=== PATIENT | male | born 1970 | race Caucasian/White ===

== ENCOUNTER 2016-07-26 14:43 | Emergency (ER) | payer SELFPAY ==
[~2016-07-26] VITALS: Ht 180.3 cm; Wt 80.0 kg
[2016-07-26] MEDS ORDERED: SODIUM CHLOR 0.9% 1000 ML INJ 1,000 ML IV ONE (14:52)
[2016-07-26] MEDS ORDERED: SODIUM CHLOR 0.9% 1000 ML INJ 1,000 ML IV SCH (14:52)
--- NOTE | 2016-07-26 14:55 | PD ---
HPI Chief Complaint: SUBSTANCE ABUSE Time Seen by Provider: 14:55 Travel History International Travel<30 days: No Contact w/Intl Traveler<30days: No History of Present Illness HPI 46-year-old male with a history of substance abuse presents to the emergency department for evaluation of shortness of breath and anxiety after using cocaine. The patient states that he used a lot of cocaine and immediately afterward began to feel shortness of breath. States that his heart was racing. States that the symptoms worsened over the next 5-10 minutes and he called EMS. Per EMS report when they arrived on scene the patient's heart rate was 191 bpm. They gave the patient 2 mg of Ativan IV which brought his heart rate down to 130 bpm. The patient states that his symptoms have greatly improved and he is no longer experiencing any shortness of breath. He denies any chest pain, lightheadedness, nausea, vomiting, abdominal pain, headache. States that he used only cocaine today. He does occasionally use IV Dilaudid, last used this 4 days ago. Denies any history of heart disease or OH. No other complaints. [facility] Past Medical History Medical History: Denies Significant Hx Cerebrovascular Accident: No Diabetes: No Myocardial Infarction: No Social History Alcohol Use: Yes (occasional) Tobacco Use: Yes Substance Use: Yes (cocaine, IV Dilaudid) Allergies-Medications (Allergen,Severity, Reaction): Coded Allergies: No Known Allergies (Unverified , 12/16/13) Reported Meds & Prescriptions Reported Meds & Active Scripts Active No Active Prescriptions or Reported Medications Review of Systems Except as stated in HPI: all other systems reviewed are Neg Physical Exam Narrative GENERAL: Well-nourished and well-developed male patient in no acute distress. SKIN: Warm and dry. HEAD: Normocephalic and atraumatic. EYES: No injection, drainage, or hyphema noted. PERRLA. EOMI. ENT: No nasal drainage noted. Oropharynx is clear. NECK: Supple and the trachea is midline. CARDIOVASCULAR: Regular rate and rhythm. RESPIRATORY: Breath sounds are equal bilaterally with no accessory muscle use, wheezing, rhonchi, or crackles. GASTROINTESTINAL: Abdomen is soft, non-tender, and nondistended. MUSCULOSKELETAL: No obvious deformities, swelling, cyanosis, or ecchymosis is present throughout the upper and lower extremities. Patient has full range of motion without any signs of neurovascular compromise. NEUROLOGICAL: Awake, alert, and oriented. Normal speech and gait. Cranial nerves are grossly intact. Data Data Last Documented VS Vital Signs Date Time Temp Pulse Resp B/P Pulse Ox O2 Delivery O2 Flow Rate FiO2 07/26/16 16:05 79 16 115/71 97 Room Air 07/26/16 15:11 98.5 Orders Electrocardiogram (07/26/16 14:52) Basic Metabolic Panel (Bmp) (07/26/16 14:52) Complete Blood Count With Diff (07/26/16 14:52) Iv Access Insert/Monitor (07/26/16 14:52) Ecg Monitoring (07/26/16 14:52) Oximetry (07/26/16 14:52) Sodium Chloride 0.9% Flush (Ns Flush) (07/26/16 15:00) Sodium Chlor 0.9% 1000 Ml Inj (Ns 1000 M (07/26/16 14:52) Sodium Chlor 0.9% 1000 Ml Inj (Ns 1000 M (07/26/16 14:52) Troponin I (07/26/16 14:55) Labs Laboratory Tests Test 07/26/16 15:00 White Blood Count 7.3 TH/MM3 Red Blood Count 4.72 MIL/MM3 Hemoglobin 13.7 GM/DL Hematocrit 41.5 % Mean Corpuscular Volume 87.9 FL Mean Corpuscular Hemoglobin 29.1 PG Mean Corpuscular Hemoglobin 33.0 % Concent Red Cell Distribution Width 13.8 % Platelet Count 107 TH/MM3 Mean Platelet Volume 9.0 FL Neutrophils (%) (Auto) 64.8 % Lymphocytes (%) (Auto) 23.8 % Monocytes (%) (Auto) 6.9 % Eosinophils (%) (Auto) 3.8 % Basophils (%) (Auto) 0.7 % Neutrophils # (Auto) 4.7 TH/MM3 Lymphocytes # (Auto) 1.7 TH/MM3 Monocytes # (Auto) 0.5 TH/MM3 Eosinophils # (Auto) 0.3 TH/MM3 Basophils # (Auto) 0.0 TH/MM3 CBC Comment DIFF FINAL Differential Comment Sodium Level 140 MEQ/L Potassium Level 3.7 MEQ/L Chloride Level 105 MEQ/L Carbon Dioxide Level 24.8 MEQ/L Anion Gap 10 MEQ/L Blood Urea Nitrogen 11 MG/DL Creatinine 1.10 MG/DL Estimat Glomerular Filtration 73 ML/MIN Rate Random Glucose 89 MG/DL Calcium Level 8.8 MG/DL Troponin I LESS THAN 0.02 NG/ML MDM Medical Decision Making Medical Screen Exam Complete: Yes Emergency Medical Condition: Yes Differential Diagnosis Substance abuse versus SVT versus OH Narrative Course 46-year-old male presents to the emergency department for evaluation of shortness of breath and heart palpitations after using cocaine. Patient is afebrile, vital signs are stable. Per EMS report when they arrived his heart rate was 191 bpm. Status post 2 mg of Ativan brought him to 130 beats per minutes. He is now a deformities for minute here in our emergency department. Symptoms have resolved. IV access is obtained, labs were drawn and sent. Patient is administered IV fluids. EKG shows normal sinus rhythm with no acute ST elevations or depressions. CBC is unremarkable. Troponin is less than 0.02. BMP is unremarkable. Patient has remained stable and without complaint while here in the emergency department. Heart rate has normalized and is around 72 bpm. Counselled cessation of illegal substances. Advised follow-up as an outpatient with PCP and a rehabilitation facility. I discussed the case with my attending physician Dr. Sharma who is aware of the patients history, physical examination findings, and treatment plan. Diagnosis Primary Impression: Cocaine abuse Referrals: Primary Care Physician [facility] Patient Instructions: Cocaine Abuse (ED), General Instructions Additional Instructions: Stop using illegal drugs. Follow-up with [facility] or another outpatient rehab facility. Return to the ED for any acute worsening of symptoms. Med/Other Pt SpecificInfo: No Change to Meds Scripts No Active Prescriptions or Reported Meds Disposition: 01 DISCHARGE HOME Condition: Stable Lacy Lazo Jul 26, 2016 14:55
[2016-07-26] MEDS ORDERED: SODIUM CHLORIDE 0.9% FLUSH 10 ML FLUSH IVF PRN (15:00)
[2016-07-26 15:11] VITALS: BP 115/71; PULSE 84; RESP 18; TEMP 98.5; O2SAT 95
[2016-07-26 15:14] VITALS: RESP 18; O2SAT 98
[2016-07-26 15:31] LABS: AUTOMATED NEUTROPHIL # 4.7 TH/MM3 (1.8-7.7); BASOPHIL % 0.7 % (0.0-2.0); EOSINOPHIL # 0.3 TH/MM3 (0-0.4); EOSINOPHIL % 3.8 % (0.0-4.0); HEMATOCRIT 41.5 % (39.0-51.0); HEMO FLAGS DIFF FINAL; LYMPH % 23.8 % (9.0-44.0); LYMPHOCYTE # 1.7 TH/MM3 (1.0-4.8); MEAN CELL VOLUME 87.9 FL (80.0-100.0); MEAN CORPUSCULAR HEMOGLOBIN 29.1 PG (27.0-34.0); MONO % 6.9 % (0.0-8.0); NEUT % 64.8 % (16.0-70.0); PLATELET COUNT 107 TH/MM3 (150-450); RED BLOOD COUNT 4.72 MIL/MM3 (4.50-5.90); RED CELL DISTRIBUTION WIDTH 13.8 % (11.6-17.2); WHITE BLOOD COUNT 7.3 TH/MM3 (4.0-11.0)
[2016-07-26 16:05] VITALS: BP 115/71; PULSE 79; RESP 16; O2SAT 97
[2016-07-26 16:07] LABS: BICARBONATE 24.8 MEQ/L (21.0-32.0)
[2016-07-26 16:09] LABS: POTASSIUM 3.7 MEQ/L (3.5-5.1)
--- NOTE | 2016-07-26 16:17 | PD ---
Data Data Last Documented VS Vital Signs Date Time Temp Pulse Resp B/P Pulse Ox O2 Delivery O2 Flow Rate FiO2 07/26/16 16:05 79 16 115/71 97 Room Air 07/26/16 15:11 98.5 Orders Electrocardiogram (07/26/16 14:52) Basic Metabolic Panel (Bmp) (07/26/16 14:52) Complete Blood Count With Diff (07/26/16 14:52) Iv Access Insert/Monitor (07/26/16 14:52) Ecg Monitoring (07/26/16 14:52) Oximetry (07/26/16 14:52) Sodium Chloride 0.9% Flush (Ns Flush) (07/26/16 15:00) Sodium Chlor 0.9% 1000 Ml Inj (Ns 1000 M (07/26/16 14:52) Sodium Chlor 0.9% 1000 Ml Inj (Ns 1000 M (07/26/16 14:52) Troponin I (07/26/16 14:55) Labs Laboratory Tests Test 07/26/16 15:00 White Blood Count 7.3 TH/MM3 Red Blood Count 4.72 MIL/MM3 Hemoglobin 13.7 GM/DL Hematocrit 41.5 % Mean Corpuscular Volume 87.9 FL Mean Corpuscular Hemoglobin 29.1 PG Mean Corpuscular Hemoglobin 33.0 % Concent Red Cell Distribution Width 13.8 % Platelet Count 107 TH/MM3 Mean Platelet Volume 9.0 FL Neutrophils (%) (Auto) 64.8 % Lymphocytes (%) (Auto) 23.8 % Monocytes (%) (Auto) 6.9 % Eosinophils (%) (Auto) 3.8 % Basophils (%) (Auto) 0.7 % Neutrophils # (Auto) 4.7 TH/MM3 Lymphocytes # (Auto) 1.7 TH/MM3 Monocytes # (Auto) 0.5 TH/MM3 Eosinophils # (Auto) 0.3 TH/MM3 Basophils # (Auto) 0.0 TH/MM3 CBC Comment DIFF FINAL Differential Comment Sodium Level 140 MEQ/L Potassium Level 3.7 MEQ/L Chloride Level 105 MEQ/L Carbon Dioxide Level 24.8 MEQ/L Anion Gap 10 MEQ/L Blood Urea Nitrogen 11 MG/DL Creatinine 1.10 MG/DL Estimat Glomerular Filtration 73 ML/MIN Rate Random Glucose 89 MG/DL Calcium Level 8.8 MG/DL Troponin I LESS THAN 0.02 NG/ML MDM Supervised Visit with DEV: Yes Narrative Course The history, exam, and medical decision-making in the associated mid-level provider note were completed with my assistance. I reviewed and agree with the findings presented. I attest that I had a [id number] encounter with the patient on the same day, and personally performed and documented my assessment and findings in the medical record. *My assessment and Findings: 46 old man who developed SVT after using cocaine. Symptoms resolved after IV fluids and IV benzodiazepines. Initial EKG in the ED shows sinus rhythm. Patient instructed to stop cocaine use. Outpatient follow-up. Diagnosis Primary Impression: Cocaine abuse Referrals: Primary Care Physician [facility] Patient Instructions: General Instructions, Cocaine Abuse (ED) Additional Instruction: Stop using illegal drugs. Follow-up with [facility] or another outpatient rehab facility. Return to the ED for any acute worsening of symptoms. Scripts No Active Prescriptions or Reported Meds Disposition: 01 DISCHARGE HOME Condition: Stable Delvis Sharma MD Jul 26, 2016 16:17
[2016-07-26 16:58] VITALS: BP 134/67
--- NOTE | 2016-07-26 22:27 | EKG ---
Date Performed: 07/26/2016 Time Performed: 15:30:54 PTAGE: 46 years EKG: Sinus rhythm NORMAL ECG NO PREVIOUS TRACING DOCTOR: Lynette Pat Interpretating Date/Time 07/26/2016 22:26:45
== END 2016-07-26 16:59 | disposition home or self-care (01) ==
LOC: NEPC 14:43
DX: F14.10 Cocaine abuse, uncomplicated (principal); R06.02 Shortness of breath
CPT/HCPCS: 80048; 84484; 85025; 93005; 99285; J7030

== ENCOUNTER 2016-08-08 11:52 | Emergency (ER) | payer OTHER ==
[~2016-08-08] VITALS: Ht 180.3 cm; Wt 82.0 kg
[2016-08-08 11:59] VITALS: BP 136/86; PULSE 127; RESP 22; RESP 24; TEMP 97.8; O2SAT 100
[2016-08-08] MEDS ORDERED: SODIUM CHLOR 0.9% 1000 ML INJ 400 ML IV ONE (12:02)
[2016-08-08] MEDS ORDERED: SODIUM CHLOR 0.9% 1000 ML INJ 1,000 ML IV ONE ×2 (12:02)
[2016-08-08 12:06] VITALS: O2SAT 100
[2016-08-08 12:31] LABS: AUTOMATED NEUTROPHIL # 5.8 TH/MM3 (1.8-7.7); BASOPHIL # 0.1 TH/MM3 (0-0.2); BASOPHIL % 0.9 % (0.0-2.0); EOSINOPHIL # 0.3 TH/MM3 (0-0.4); EOSINOPHIL % 3.1 % (0.0-4.0); HEMATOCRIT 43.3 % (39.0-51.0); HEMO FLAGS DIFF FINAL; LYMPH % 32.6 % (9.0-44.0); LYMPHOCYTE # 3.5 TH/MM3 (1.0-4.8); MEAN CELL VOLUME 87.5 FL (80.0-100.0); MEAN CORPUSCULAR HEMOGLOBIN 30.2 PG (27.0-34.0); MEAN CORPUSCULAR HGB CONC 34.5 % (32.0-36.0); MONO % 8.5 % (0.0-8.0); NEUT % 54.9 % (16.0-70.0); PLATELET COUNT 135 TH/MM3 (150-450); RED BLOOD COUNT 4.94 MIL/MM3 (4.50-5.90); RED CELL DISTRIBUTION WIDTH 13.8 % (11.6-17.2); WHITE BLOOD COUNT 10.6 TH/MM3 (4.0-11.0)
--- NOTE | 2016-08-08 12:50 | RADRPT ---
EXAM DATE/TIME: 08/08/2016 12:16 [facility] COMPARISON: No previous studies available for comparison. INDICATIONS : Short of breath MEDICAL HISTORY : None. SURGICAL HISTORY : None. ENCOUNTER: Initial ACUITY: 3 days PAIN SCORE: 0/10 LOCATION: Bilateral chest FINDINGS: A single view of the chest demonstrates the lungs to be symmetrically aerated without evidence of mas s, infiltrate or effusion. The cardiomediastinal contours are unremarkable. Osseous structures are intact. CONCLUSION: Normal examination. Vikram Robles MD on August 08, 2016 at 12:48 Board Certified Radiologist. This report was verified electronically.
[2016-08-08 13:02] LABS: ALKALINE PHOSPHATASE 67 U/L (45-117); ALT (GPT) 58 U/L (12-78); ANION GAP 15 MEQ/L (5-15); AST (GOT) 39 U/L (15-37); BICARBONATE 20.4 MEQ/L (21.0-32.0); BLOOD UREA NITROGEN 8 MG/DL (7-18); CHLORIDE 101 MEQ/L (98-107); CREATINE KINASE 126 U/L (39-308); GLOMERULAR FILTRATION RATE 73 ML/MIN (>89); MAGNESIUM 2.2 MG/DL (1.5-2.5); POTASSIUM 3.4 MEQ/L (3.5-5.1); SODIUM (NA) 136 MEQ/L (136-145); TOTAL BILIRUBIN ADULT 0.7 MG/DL (0.2-1.0)
[2016-08-08 13:14] LABS: CKMB LESS THAN 0.5 NG/ML (0.5-3.6)
[2016-08-08 13:44] LABS: BLOOD, URINE NEG (NEG); GLUCOSE,URINE NEG (NEG); HYALINE CAST, URINE 4 /lpf (RARE); KETONE, URINE NEG (NEG); MUCUS URINE FEW /lpf (OCC); NITRITE,URINE NEG (NEG); PH, URINE 6.5 (5.0-8.5); URINE COLOR YELLOW (YELLW/STRAW)
[2016-08-08 13:49] LABS: COMMENT (UR) CATH-CULT NOT IND; CULTURE IF INDICATED CATH CULTURE NOT IND
--- NOTE | 2016-08-08 14:02 | PD ---
HPI Chief Complaint: Respiratory Distress Time Seen by Provider: 12:02 Travel History International Travel<30 days: No Contact w/Intl Traveler<30days: No Traveled to known affect area: No History of Present Illness HPI 46-year-old male arrives to the ER complaining of sudden onset shortness of breath. He has a history of IV drug abuse, Dilaudid. He has been abusing drugs for couple years now intravenously. Shortly after injecting he developed sudden onset shortness of breath and chest pain. Diaphoresis accompanied the symptoms. He denies cocaine abuse. No LOC/headache. No back pain. No fever. No weakness/numbness reported. PFSH Past Medical History Medical History: Denies Significant Hx Cerebrovascular Accident: No Diabetes: No Diminished Hearing: No Myocardial Infarction: No Tetanus Vaccination: < 5 Years Influenza Vaccination: Yes Past Surgical History Surgical History: No Previous Surgery Social History Alcohol Use: Yes (occasional) Tobacco Use: Yes Substance Use: Yes (cocaine, IV Dilaudid) Allergies-Medications (Allergen,Severity, Reaction): Coded Allergies: No Known Allergies (Unverified , 08/08/16) Reported Meds & Prescriptions Reported Meds & Active Scripts Active No Active Prescriptions or Reported Medications Review of Systems Except as stated in HPI: all other systems reviewed are Neg Cardiovascular: Positive: Tachycardia Respiratory: Positive: Shortness of Breath Physical Exam Narrative GENERAL: 46-year-old male, well-nourished well-developed mildly anxious, cooperative SKIN: Warm and dry. Linear lesions about the arms consistent with IV drug abuse. HEAD: Atraumatic. Normocephalic. EYES: Pupils equal and round. No scleral icterus. No injection or drainage. ENT: No nasal bleeding or discharge. Mucous membranes pink and moist. NECK: Trachea midline. No JVD. CARDIOVASCULAR: Tachycardia. Regular rhythm. No murmur. RESPIRATORY: No accessory muscle use. Clear to auscultation. Breath sounds equal bilaterally. GASTROINTESTINAL: Abdomen soft, non-tender, nondistended. Hepatic and splenic margins not palpable. MUSCULOSKELETAL: No obvious deformities. No clubbing. No cyanosis. No edema. NEUROLOGICAL: Awake and alert. No obvious cranial nerve deficits. Motor grossly within normal limits. Normal speech. PSYCHIATRIC: Appropriate mood and affect; insight and judgment normal. Data Data Last Documented VS Vital Signs Date Time Temp Pulse Resp B/P Pulse Ox O2 Delivery O2 Flow Rate FiO2 08/08/16 14:30 79 20 126/67 100 Nasal Cannula 2 08/08/16 11:59 97.8 Vital signs reviewed Orders Complete Blood Count With Diff (08/08/16 12:02) Comprehensive Metabolic Panel (08/08/16 12:02) Lactic Acid Sepsis Protocol (08/08/16 12:02) Magnesium (Mg) (08/08/16 12:02) Ckmb (Isoenzyme) Profile (08/08/16 12:02) Troponin I (08/08/16 12:02) Urinalysis - C+S If Indicated (08/08/16 12:02) Blood Culture (08/08/16 12:02) Chest, Single Ap (08/08/16 12:02) Blood Glucose (08/08/16 12:02) Ecg Monitoring (08/08/16 12:02) Iv Access Insert/Monitor (08/08/16 12:02) Oximetry (08/08/16 12:02) Oxygen Administration (08/08/16 12:02) Sodium Chlor 0.9% 1000 Ml Inj (Ns 1000 M (08/08/16 12:02) Sodium Chlor 0.9% 1000 Ml Inj (Ns 1000 M (08/08/16 12:02) Sodium Chlor 0.9% 1000 Ml Inj (Ns 1000 M (08/08/16 12:02) Ct Pulmonary Angiogram (08/08/16 12:02) CKMB (08/08/16 12:10) CKMB% (08/08/16 12:10) Lactic Acid (08/08/16 14:10) Electrocardiogram (08/08/16 11:56) Iohexol 350 Inj (Omnipaque 350 Inj) (08/08/16 14:11) Potassium Chloride (Kcl) (08/08/16 14:45) Electrocardiogram (08/08/16 14:56) Labs Laboratory Tests Test 08/08/16 08/08/16 08/08/16 12:10 13:16 14:30 White Blood Count 10.6 TH/MM3 Red Blood Count 4.94 MIL/MM3 Hemoglobin 14.9 GM/DL Hematocrit 43.3 % Mean Corpuscular Volume 87.5 FL Mean Corpuscular Hemoglobin 30.2 PG Mean Corpuscular Hemoglobin 34.5 % Concent Red Cell Distribution Width 13.8 % Platelet Count 135 TH/MM3 Mean Platelet Volume 9.2 FL Neutrophils (%) (Auto) 54.9 % Lymphocytes (%) (Auto) 32.6 % Monocytes (%) (Auto) 8.5 % Eosinophils (%) (Auto) 3.1 % Basophils (%) (Auto) 0.9 % Neutrophils # (Auto) 5.8 TH/MM3 Lymphocytes # (Auto) 3.5 TH/MM3 Monocytes # (Auto) 0.9 TH/MM3 Eosinophils # (Auto) 0.3 TH/MM3 Basophils # (Auto) 0.1 TH/MM3 CBC Comment DIFF FINAL Differential Comment Sodium Level 136 MEQ/L Potassium Level 3.4 MEQ/L Chloride Level 101 MEQ/L Carbon Dioxide Level 20.4 MEQ/L Anion Gap 15 MEQ/L Blood Urea Nitrogen 8 MG/DL Creatinine 1.09 MG/DL Estimat Glomerular Filtration 73 ML/MIN Rate Random Glucose 113 MG/DL Lactic Acid Level 5.2 mmol/L 0.5 mmol/L Calcium Level 9.6 MG/DL Magnesium Level 2.2 MG/DL Total Bilirubin 0.7 MG/DL Aspartate Amino Transf 39 U/L (AST/SGOT) Alanine Aminotransferase 58 U/L (ALT/SGPT) Alkaline Phosphatase 67 U/L Total Creatine Kinase 126 U/L Creatine Kinase MB LESS THAN 0.5 NG/ML Troponin I LESS THAN 0.02 NG/ML Total Protein 8.9 GM/DL Albumin 4.6 GM/DL Urine Color YELLOW Urine Turbidity CLEAR Urine pH 6.5 Urine Specific [place] 1.023 Urine Protein NEG mg/dL Urine Glucose (UA) NEG mg/dL Urine Ketones NEG mg/dL Urine Occult Blood NEG Urine Nitrite NEG Urine Bilirubin NEG Urine Urobilinogen LESS THAN 2.0 MG/DL Urine Leukocyte Esterase NEG Urine WBC LESS THAN 1 /hpf Urine Hyaline Casts 4 /lpf Urine Mucus FEW /lpf Microscopic Urinalysis Comment CATH-CULT NOT IND MDM Medical Decision Making Medical Screen Exam Complete: Yes Emergency Medical Condition: Yes Medical Record Reviewed: Yes Differential Diagnosis NSTEMI, unstable angina, coronary vasospasm, PE, PTX, aortic dissection, pericarditis, myocarditis, endocarditis, PNA, esophageal disease, aneurysm, musculoskeletal etiologies, anxiety, cocaine/sympathomimetic abuse Narrative Course CBC & BMP Diagram 08/08/16 12:10 LFTs normal Troponin less than 0.02 Lactic acid 5.2 Repeat lactic 0.5 Urinalysis is normal (hematuria) EKG reveals sinus tachycardia rate of about 160 Last 24 hours Impressions Chest X-Ray 08/08/16 1202 Signed Impressions: Service Date/Time: Monday, August 08, 2016 12:16 - CONCLUSION: Normal examination. Vikram Robles MD CT Angiography 08/08/16 1202 Signed Impressions: Service Date/Time: Monday, August 08, 2016 14:08 - CONCLUSION: Normal examination. Vikram Robles MD Repeat EKG reveals a sinus rhythm with a rate of 71 normal axis and intervals Overall the patient's presentation is somewhat concerning for endocarditis however we see no evidence of that here. Patient has been reassessed a few occasions during his ER stay. His tachycardia resolved almost instantly with hydration. He has had no complaints since arrival. We had a luzmaria and straightforward discussion about risks of continued IV drug abuse. Patient demonstrates good insight and states he will endeavor to abstain from any IV drug abuse henceforward. Of note initial elevated lactic acid likely due to tourniquet time as pt was very difficult to establish access. Repeat lactic is very reassuring. Pt also demonstrates markedly improved clinical appearance on repeat exam. Diagnosis Primary Impression: Shortness of breath Additional Impression: IVDU (intravenous drug user) [facility] Additional Instructions: You have a choice when it comes to health care, and we are glad that you chose [facility]. Hopefully, we have met your expectations on today's visit. You are welcome to return to [facility] at any time, as we are committed to meeting the health care needs of our community. Med/Other Pt SpecificInfo: No Change to Meds Scripts No Active Prescriptions or Reported Meds Disposition: 01 DISCHARGE HOME Condition: Stable Nitesh Alex MD Aug 08, 2016 14:02
[2016-08-08] MEDS ORDERED: IOHEXOL 350 MG/ML 10 ML VIAL (for RAD DIAG) IV ONE (14:11)
[2016-08-08 14:20] LABS: LACTIC ACID GHOST NOT REPORTABLE
[2016-08-08 14:30] VITALS: BP 126/67; PULSE 79; RESP 20; O2SAT 100
--- NOTE | 2016-08-08 14:32 | RADRPT ---
EXAM DATE/TIME: 08/08/2016 14:08 [facility] COMPARISON: CHEST SINGLE AP, August 08, 2016, 12:16. INDICATIONS : Shortness of breath; evaluate for pulmonary emboli. IV CONTRAST: 55 cc Omnipaque 350 (iohexol) IV RADIATION DOSE: 10.59 CTDIvol (mGy) MEDICAL HISTORY : IV drug abuse. SURGICAL HISTORY : None. ENCOUNTER: Initial ACUITY: 1 day PAIN SCALE: 3/10 LOCATION: Bilateral chest TECHNIQUE: Volumetric scanning of the chest was performed using a pulmonary embolism protocol MIP images were re constructed. Using automated exposure control and adjustment of the mA and/or kV according to patien t size, radiation dose was kept as low as reasonably achievable to obtain optimal diagnostic quality images. FINDINGS: PULMONARY ARTERIES: No filling defects are seen in the pulmonary arteries through the segmental level. LUNGS: There is no consolidation or pneumothorax . No concerning pulmonary nodule is visualized. PLEURAE: There is no pleural thickening or pleural effusion. MEDIASTINUM: There is good visualization of the great vessels of the middle mediastinum. No evidence of mediastin al or hilar adenopathy/mass. MUSCULOSKELETAL: Within normal limits for patient age. MISCELLANEOUS: The visualized upper abdominal organs demonstrate no acute abnormality. CONCLUSION: Normal examination. Vikram Robles MD on August 08, 2016 at 14:30 Board Certified Radiologist. This report was verified electronically.
[2016-08-08] MEDS ORDERED: POTASSIUM CHLORIDE 20 MEQ CONTROLLED RELEASE TAB PO ONE (14:45)
--- NOTE | 2016-08-09 11:47 | EKG ---
Date Performed: 08/08/2016 Time Performed: 14:56:07 PTAGE: 46 years EKG: Sinus rhythm NORMAL ECG NO PREVIOUS TRACING DOCTOR: Jayesh Miranda Interpretating Date/Time 08/09/2016 11:41:11
--- NOTE | 2016-08-09 11:52 | EKG ---
Date Performed: 08/08/2016 Time Performed: 11:56:36 PTAGE: 46 years EKG: POSSIBLE ATRIAL FLUTTER NONSPECIFIC ST & T-WAVE ABNORMALITY ABNORMAL RHYTHM ECG NO PREVIOUS TRACING DOCTOR: Jayesh Miranda Interpretating Date/Time 08/09/2016 11:46:10
== END 2016-08-08 15:26 | disposition home or self-care (01) ==
LOC: NEPE 11:52
DX: R06.02 Shortness of breath (principal); R07.9 Chest pain, unspecified; R61 Generalized hyperhidrosis; R94.31 Abnormal electrocardiogram [ECG] [EKG]; R00.0 Tachycardia, unspecified
CPT/HCPCS: 71010; 71275; 80053; 81001; 82550; 82552; 83605; 83735; 84484; 85025; 87040; 93005; 96360; 99285; J7030; Q9967

== ENCOUNTER 2017-09-06 11:23 | Emergency (ER) | payer SELFPAY ==
[~2017-09-06] VITALS: Ht 180.3 cm; Wt 82.0 kg
[2017-09-06 11:26] VITALS: BP 139/89; PULSE 115; RESP 32; TEMP 98.3; O2SAT 100
[2017-09-06] MEDS ORDERED: SODIUM CHLOR 0.9% 1000 ML INJ 1,000 ML IV ONE ×3 (11:45)
[2017-09-06] MEDS ORDERED: SODIUM CHLORIDE 0.9% FLUSH 10 ML FLUSH IVF PRN (11:45)
--- NOTE | 2017-09-06 11:47 | PD ---
HPI Chief Complaint: Respiratory Symptoms Time Seen by Provider: 11:29 Travel History International Travel<30 days: No Contact w/Intl Traveler<30days: No Traveled to known affect area: No History of Present Illness HPI 47 year old male presents to the emergency department for evaluation of shortness of breath that started approximately 1.5-2 hours prior to arrival. Patient states it is intermittent. He states he had a similar episode almost one year ago. Patient reports history of IV drug use. He states he goes to the methadone clinic. He does state that he does intermittently relapse. He last used IV drugs 2 weeks ago. He denies any fevers or chills. No headache. He denies any chest pain. No abdominal pain. No nausea, vomiting, diarrhea. He is unsure if he could be anxious. He does not follow with her primary care physician. Patient states it comes and goes. He has no exacerbating or alleviating factors. He denies any recent surgery or travel. No leg edema. No history DVT or PE. No hemoptysis. Moderate severity. PFSH Past Medical History Cerebrovascular Accident: No Diabetes: No Diminished Hearing: No Myocardial Infarction: No Social History Alcohol Use: Yes (occasional) Tobacco Use: Yes Substance Use: Yes (cocaine, IV Dilaudid) Allergies-Medications (Allergen,Severity, Reaction): Coded Allergies: No Known Allergies (Unverified , 08/08/16) Reported Meds & Prescriptions Reported Meds & Active Scripts Active Reported Methadone (Methadone HCl) 40 Mg Tab 40 Mg PO DAILY Review of Systems Except as stated in HPI: all other systems reviewed are Neg Physical Exam Narrative GENERAL: Well-nourished, well-developed male patient, afebrile. SKIN: Focused skin assessment warm/dry. HEAD: Normocephalic. Atraumatic. EYES: No scleral icterus. No injection or drainage. NECK: Supple, trachea midline. No JVD or lymphadenopathy. CARDIOVASCULAR: Regular rate and rhythm without murmurs, gallops, or rubs. Bilateral radial and pedal pulses are 2+. RESPIRATORY: Breath sounds equal bilaterally. No accessory muscle use. Lung sounds are clear to auscultation throughout. GASTROINTESTINAL: Abdomen soft, non-tender, nondistended. MUSCULOSKELETAL: No cyanosis, or edema. BACK: Nontender without obvious deformity. No CVA tenderness. Data Data Last Documented VS Vital Signs Date Time Temp Pulse Resp B/P (MAP) Pulse Ox O2 Delivery O2 Flow Rate FiO2 09/06/17 12:08 99 Room Air 09/06/17 11:40 100 24 09/06/17 11:26 98.3 139/89 (106) Orders Orders Complete Blood Count With Diff (09/06/17 11:37) Basic Metabolic Panel (Bmp) (09/06/17 11:37) D-Dimer (09/06/17 11:37) Act Partial Throm Time (Ptt) (09/06/17 11:37) Prothrombin Time / Inr (Pt) (09/06/17 11:37) Magnesium (Mg) (09/06/17 11:37) Ckmb (Isoenzyme) Profile (09/06/17 11:37) Troponin I (09/06/17 11:37) Blood Culture (09/06/17 11:37) Iv Access Insert/Monitor (09/06/17 11:37) Electrocardiogram (09/06/17 11:37) Ecg Monitoring (09/06/17 11:37) Oximetry (09/06/17 11:37) Oxygen Administration (09/06/17 11:37) Chest, Single Ap (09/06/17 11:37) Sodium Chloride 0.9% Flush (Ns Flush) (09/06/17 11:45) Sodium Chlor 0.9% 1000 Ml Inj (Ns 1000 M (09/06/17 11:45) Sodium Chlor 0.9% 1000 Ml Inj (Ns 1000 M (09/06/17 11:45) Sodium Chlor 0.9% 1000 Ml Inj (Ns 1000 M (09/06/17 11:45) Lactic Acid Sepsis Protocol (09/06/17 11:37) Lorazepam (Ativan) (09/06/17 12:15) Ct Pulmonary Angiogram (09/06/17 ) CKMB (09/06/17 12:00) CKMB% (09/06/17 12:00) Labs Laboratory Tests Test 09/06/17 12:00 White Blood Count 6.2 TH/MM3 Red Blood Count 4.90 MIL/MM3 Hemoglobin 14.4 GM/DL Hematocrit 42.6 % Mean Corpuscular Volume 87.0 FL Mean Corpuscular Hemoglobin 29.3 PG Mean Corpuscular Hemoglobin Concent 33.7 % Red Cell Distribution Width 13.4 % Platelet Count 144 TH/MM3 Mean Platelet Volume 8.5 FL Neutrophils (%) (Auto) 66.3 % Lymphocytes (%) (Auto) 21.8 % Monocytes (%) (Auto) 9.6 % Eosinophils (%) (Auto) 1.9 % Basophils (%) (Auto) 0.4 % Neutrophils # (Auto) 4.1 TH/MM3 Lymphocytes # (Auto) 1.4 TH/MM3 Monocytes # (Auto) 0.6 TH/MM3 Eosinophils # (Auto) 0.1 TH/MM3 Basophils # (Auto) 0.0 TH/MM3 CBC Comment DIFF FINAL Differential Comment Prothrombin Time 10.4 SEC Prothromb Time International Ratio 1.0 RATIO Activated Partial Thromboplast Time 26.5 SEC D-Dimer Quantitative (PE/DVT) 1.15 MG/L FEU Blood Urea Nitrogen 8 MG/DL Creatinine 1.02 MG/DL Random Glucose 109 MG/DL Calcium Level 8.9 MG/DL Magnesium Level 2.0 MG/DL Sodium Level 138 MEQ/L Potassium Level 3.9 MEQ/L Chloride Level 104 MEQ/L Carbon Dioxide Level 25.7 MEQ/L Anion Gap 8 MEQ/L Estimat Glomerular Filtration Rate 79 ML/MIN Total Creatine Kinase 117 U/L Creatine Kinase MB LESS THAN 0.5 NG/ML Troponin I LESS THAN 0.02 NG/ML MDM Medical Decision Making Medical Screen Exam Complete: Yes Emergency Medical Condition: Yes Medical Record Reviewed: Yes Differential Diagnosis Anxiety versus pneumonia versus pneumothorax versus ACS versus sepsis versus endocarditis versus PE Narrative Course 47-year-old male presents to the emergency department for evaluation of shortness of breath for the past 1.5-2 hours. He does have history of IV drug use. His girlfriend at bedside states he last used 2 weeks ago. He is currently on methadone. Patient denies any other symptoms or complaints at this time. EKG, CBC, BMP, magnesium, CK, troponin, lactic acid, PTT, PT/INR, d- dimer, chest x-ray ordered and pending. Patient is given normal saline 1 L IV 3 for tachycardia. EKG shows sinus tachycardia, no acute ST changes. CBC shows no acute abnormality. Normal WBC at 6.2. BMP shows no acute abnormality. Lactic acid is pending. Magnesium is 2.0. CK is 117. Troponin is less than 0.02. Coags are unremarkable. D-dimer is elevated at 1.15. Chest x-ray shows no acute disease. No significant change has occurred. Patient is requesting a medication for anxiety. Ativan 1 mg p.o. is ordered. Patient declines at stating he needs Xanax or Valium. CT pulmonary angiogram was ordered due to elevated d-dimer. When the tech came to get the patient for the CT scan, he declined. I discussed that the patient is declining important testing and I cannot rule out a pulmonary embolism or septic emboli without a CT scan. He states that he understands this and wants to leave AGAINST MEDICAL ADVICE. He is requesting Valium or Xanax which I do not feel is appropriate as I did order him Ativan which he declined. The patient is alert and oriented to person, place, time. He appears capable of making this decision for himself. He is requesting to leave AGAINST MEDICAL ADVICE. AMA: The risks of leaving against medical advice without further evaluation treatment were discussed with the patient. These risks include cardiac dysfunction, cardiac dysrhythmia, possible heart attack, possible stroke or . The patient indicated understanding of these risks and appeared to have the capacity to make this decision. Diagnosis Primary Impression: Left against medical advice Additional Impressions: Shortness of breath IVDU (intravenous drug user) Disposition: 07 AGAINST MEDICAL ADVICE Layne Soliman September 06, 2017 11:47
--- NOTE | 2017-09-06 12:07 | RADRPT ---
EXAM DATE/TIME: 09/06/2017 11:50 [facility] COMPARISON: CHEST SINGLE AP, August 08, 2016, 12:16. INDICATIONS : Congestion with wheezing and shortness of breath. MEDICAL HISTORY : None. SURGICAL HISTORY : None. ENCOUNTER: Initial ACUITY: 2 days PAIN SCORE: 0/10 LOCATION: Bilateral chest FINDINGS: A single view of the chest demonstrates the lungs to be symmetrically aerated without evidence of mas s, infiltrate or effusion. The cardiomediastinal contours are unremarkable. Osseous structures are intact. CONCLUSION: No acute disease. No significant change has occurred. Vignesh Nayak MD on September 06, 2017 at 12:05 Board Certified Radiologist. This report was verified electronically.
[2017-09-06 12:08] VITALS: O2SAT 99
[2017-09-06] MEDS ORDERED: METH40TA PO (12:10)
[2017-09-06] MEDS ORDERED: LORazepam 1 MG TAB PO ONE (12:15)
[2017-09-06 12:21] LABS: AUTOMATED NEUTROPHIL # 4.1 TH/MM3 (1.8-7.7); BASOPHIL % 0.4 % (0.0-2.0); EOSINOPHIL # 0.1 TH/MM3 (0-0.4); EOSINOPHIL % 1.9 % (0.0-4.0); HEMATOCRIT 42.6 % (39.0-51.0); HEMOGLOBIN 14.4 GM/DL (13.0-17.0); LYMPH % 21.8 % (9.0-44.0); LYMPHOCYTE # 1.4 TH/MM3 (1.0-4.8); MEAN CORPUSCULAR HEMOGLOBIN 29.3 PG (27.0-34.0); MEAN CORPUSCULAR HGB CONC 33.7 % (32.0-36.0); MEAN PLATELET VOLUME 8.5 FL (7.0-11.0); MONO % 9.6 % (0.0-8.0); MONOCYTE # 0.6 TH/MM3 (0-0.9); NEUT % 66.3 % (16.0-70.0); PLATELET COUNT 144 TH/MM3 (150-450); RED CELL DISTRIBUTION WIDTH 13.4 % (11.6-17.2); WHITE BLOOD COUNT 6.2 TH/MM3 (4.0-11.0)
[2017-09-06 12:36] LABS: PROTHROMBIN TIME - PATIENT 10.4 SEC (9.8-11.6)
[2017-09-06 12:37] LABS: D-DIMER 1.15 MG/L FEU (0.00-0.50)
[2017-09-06 12:41] LABS: BICARBONATE 25.7 MEQ/L (21.0-32.0); BLOOD UREA NITROGEN 8 MG/DL (7-18); CALCIUM 8.9 MG/DL (8.5-10.1); CHLORIDE 104 MEQ/L (98-107); CREATININE 1.02 MG/DL (0.60-1.30); GLOMERULAR FILTRATION RATE 79 ML/MIN (>89); GLUCOSE,RANDOM 109 MG/DL (74-106); SODIUM (NA) 138 MEQ/L (136-145)
[2017-09-06 12:47] LABS: TROPONIN I LESS THAN 0.02 NG/ML (0.02-0.05)
[2017-09-06 13:24] VITALS: BP 133/76
--- NOTE | 2017-09-07 19:32 | EKG ---
Date Performed: 09/06/2017 Time Performed: 11:51:44 PTAGE: 47 years EKG: SINUS TACHYCARDIA ABNORMAL RHYTHM ECG Since the PREVIOUS TRACING , no significant change noted PREVIOUS TRACIN08/08/2016 14.56 DOCTOR: Galindo Mendoza Interpretating Date/Time 09/07/2017 19:31:32
== END 2017-09-06 13:28 | disposition left against medical advice (07) ==
LOC: NEPC 11:23
DX: R06.02 Shortness of breath (principal); R00.0 Tachycardia, unspecified; Z72.0 Tobacco use
CPT/HCPCS: 71045; 80048; 82550; 82552; 83735; 84484; 85025; 85379; 85610; 85730; 87040; 93005; 96360; 99285; J7030